=== PATIENT | male | born 1960 | race Caucasian/White ===

== ENCOUNTER → 2016-09-14 | Outpatient (REF) | payer BC ==
[~2016-09-14] MED LIST: RANI1TAB6 PO; SUCR1TA PO; [UNRECOGNIZED DRUG - CODE] TOP
[2016-09-17 00:06] LABS: Lyme Disease IgG/IgM Antibodie <0.91 ISR (0.00-0.90); Lyme Disease IgM Ab Quantitati <0.80 index (0.00-0.79)
== END ==
LOC: M LAB REF 16:43
PROVIDERS: ATTEND Nurse Practitioner Family
DX: R53.83 Other fatigue (principal); M79.1 Myalgia

== ENCOUNTER → 2017-04-19 | Outpatient (CLI) | payer BC | LOC: M WUC 11:53 | DX: M79.671 Pain in right foot (principal) | CPT/HCPCS: 73630 ==

== ENCOUNTER → 2019-02-16 | Outpatient (REF) | payer BC ==
[~2019-02-16] MED LIST changes: +RANI-397 PO; -RANI1TAB6 PO
[2019-02-19 14:12] LABS: Lyme Disease IgG/IgM Antibodie <0.91 ISR (0.00-0.90); Lyme Disease IgM Ab Quantitati <0.80 index (0.00-0.79)
== END ==
LOC: M LAB REF 16:31
PROVIDERS: ATTEND Internal Medicine
DX: R53.83 Other fatigue (principal); R68.82 Decreased libido

== ENCOUNTER → 2019-06-06 | Outpatient (REF) | payer BC ==
[2019-06-06 17:01] LABS: URIC ACID 7.1 MG/DL (3.5-7.2)
== END ==
LOC: M LAB REF 16:24
PROVIDERS: ATTEND Nurse Practitioner Adult Health
DX: M10.9 Gout, unspecified (principal); R11.0 Nausea

== ENCOUNTER → 2020-03-27 | Outpatient (CLI) | payer BC ==
[~2020-03-27] MED LIST changes: +CETACAINE SPRAY 5GM MT ONE; +DIALTAB2 PO; +ECHI80CA PO; +EFFE20TA PO; +FISH1000 PO; +GINK1CAP PO; +GNP250TA9 PO; +IBUP-1022; +OCUV1CHW PO; +PROC10TA4 PO; +THERTAB52 PO
--- NOTE | 2020-03-27 16:05 | RADONC.CN ---
Radiation Oncology Hx/Consult Radiation Oncology Consult Date of Service: Mar 27, 2020 Pt Identifier Neri Matt is a 59 year old male non-smoker with [id number] Stage I HPV+ left tonsil SCC. He is seen for consideration of definitive chemoradiation. Diagnosis/Treatment History Oncologic History Patient noted left neck swelling in October 2019. This was evaluated by his PCP who referred him to ENT and he underwent FNA of the mass on 02/20/20 which revealed HPV+ SCC. He had a PET-CT on 02/29/20 which demonstrated 4 cm cystic necrotic left level II node with no obvious primary tumor. There was also a 1.1 cm mildly avid portocaval node identified (follow up CT abdomen pending). He underwent DL and biopsies on 03/10/20 and the left tonsillectomy specimen returned HPV+ SCC. [id number] Stage I. He had a single episode of post biopsy oropharyngeal bleeding which resolved spontaneously. He was evaluated in the multidisciplinary clinic at [facility] and he opted for chemoradiation as opposed to TORS. Interval History Patient is here with his partner. He recently lost his 29 yo son in a car accident. Still grieving, but hopeful for the fight ahead. He has minimal odynophagia post-biopsy no dysphagia at this time. Again eating solid foods. He did lose about 10 lbs in the post-biopsy setting which was unsettling to him. Has strongly changed his preference toward PEG tube placement which is now scheduled for 04/08/20 (was initially resistant to this). He has seen his dentist this week. Had a crown replaced. No outstanding dental issues per report. He denies left ear pain at this time. No neck pain. Does have post nasal drip. Appetite is good energy is stable. Past Medical History: GERD Gout Hiatal hernia Mitral valve regurgitation Past Surgical History: As above Family History: Father lung cancer Social History: Non-smoker Does not drink Runs an insurance agency Lost son in car accident in February 2020 Allergies / Meds Home Meds Reported Medications Nitroglycerin (Rectiv) 0.4 %/125 Gm Oint, 1 IN TOP Q12H, OIN 01/15/15 Ranitidine HCl (Ranitidine HCl) 150 Mg Tab, 150 MG PO BID, TAB 01/15/15 Sucralfate (Sucralfate) 1 Gm Tab, 1 GM PO ACHS, TAB 01/15/15 Review of Systems Constitutional: Denies: Chills, Fever, Night Sweats Eyes: Denies: Pain, Vision change HEENT: Reports: Post Nasal Drip; Denies: Head Aches, Ear Pain, Dysphagia, Sore Throat, Epistaxis Skin: Denies: Rash, Lesions, Bruising Pulmonary: Denies: Dyspnea, Cough Cardiovascular: Denies: Chest Pain, Palpitations, Edema Gastrointestinal: Denies: Nausea, Vomiting, Abdominal Pain, Diarrhea Genitourinary: Denies: Dysuria, Frequency, Incontinence Hematologic: Denies: Bruising, Petecchia, Enlarged Lymph Nodes Musculoskeletal: Denies: Neck pain, Back pain Neurological: Denies: Weakness, Numbness, Incoordination Psych: Reports: Mood Normal; Denies: Memory Issues, Thoughts of Self Harm Vital Signs Ht 66" Wt 142 lbs BMI 23 T 97.5 P 80 RR 18 BP 147/88 O2 98% Pain 0 Fatigue 2 General Exam: Positive: Alert, Cooperative, No Acute Distress Eye Exam: Positive: PERRLA, EOMI ENT EXAM: Positive: Mucous membr. moist/pink, Pharynx Normal, Tongue Midline, Other ENT (Complete oral cavity exam completed: There are no buccal mucosal lesions palpable, dentition in excellent condition. No missing or broken teeth. There are no palpable lesions in the FOM on bimanual exam. There is visible granulation tissue in the left tonsillar fossa, there are no lesions on palpation of the tonsillar fossae and BOT BL. There is a large left level II mass, it is mobile, centrally firm, fluctuant and non-tender. No overlying skin changes. No contralateral cervical or supraclavicular adenopathy); Negative: Pharyngeal Edema Chest Exam: Positive: Normal air movement; Negative: Rales, Rhonchi, Wheezing Heart Exam: Positive: Rate Normal, Regular Rhythm Abdomen Exam: Positive: Soft; Negative: Tenderness, Mass Extremity Exam: Negative: Edema, Tenderness Skin Exam: Positive: Nl turgor and temperature; Negative: Rash Neuro Exam: Positive: Normal Gait, Normal Speech, Cranial Nerves 3-12 NL Psych Exam: Positive: Mental status NL, Mood NL, Memory Intact Other Physical Findings Laryngoscopy: Patient provided verbal consent to be scoped. Cetacaine was introduced in the right nare for anesthesia. The scope was introduced and passed easily to the nasopharynx no biopsy site changes identified, torus tubarius patent, pharyngeal recess normal. The scoped was passed to the posterior pharyngeal wall there was adherent green mucus covering the wall BL. The scope was obscured and withdrawn and cleared and reintroduced. It was passed to the oropharynx the BL BOT were free of lesions or ulceration. The AE folds were clear. The BL piriform sinuses were easily visualized and patent without lesions. The glottis and epiglottis are freely mobile on phonation. The scope was withdrawn and the patient tolerated the procedure well. Diagnostic and Laboratory Diagnostic Review Radiologic images, relevant labs and pathology reports were personally reviewed and discussed with Mr. Matt. Assessment and Plan Impression Mr. Matt is a 59 year old male non-smoker with [id number] Stage I HPV+ left tonsil SCC. He is seen for consideration of definitive chemoradiation. Stage [id number] HPV+ left tonsil stage I Performance Status ECOG 0 Plan We had an extensive discussion with Mr. Matt regarding the diagnosis at hand and available therapeutic options. He had an excisional biopsy of the left tonsil. No comment on margin status, but had a cauterized posterior margin so consistent with non-oncologic removal. The left neck matteo mass is bulky and typical of HPV+ matteo disease both clinically and radiographically. I agree with the recommendations he received from Dr. Simmons at [facility] (with whom I have discussed the case personally) for chemoradiation 70 Gy in 35 fractions with weekly cisplatin. He asked for referral to medical oncology here due to travel concerns and for convenience, I will facilitate this. We had a lengthy discussion overall of prognosis from this disease, natural history of HPV associated neoplasms, indications for vaccination for HPV and for COVID (I support him receiving COVID vaccine [facility]), and also discussing the tragic recent loss of his son. He has PEG tube placement on 04/08/20, he is strongly in favor of prophylactic placement. I am ok with this and will facilitate nutritional support here locally as well. I confided that I think he would be able to tolerate treatment without a PEG based on his lack of dysphagia leading up to diagnosis and his otherwise healthy BMI. But as he is quite savvy on this topic I defer to his preference to have one placed. We discussed the logistics of receiving radiation therapy in detail including the need for a 1-time planning session. This can occur next week. I reviewed the exhaustive list of side effects associated with treatment which he is already aware of from his prior conversations at [facility]. After discussing the risks, benefits and alternatives to radiation therapy, Mr. Matt was amenable to pursuing radiotherapy. All questions were answered to the patient's satisfaction. We instructed the patient that if there were any questions,concerns or changes in clinical status in the interim to contact us. Recommendations Chemoradiation 70 Gy in 35 fractions Interim replan ~ 30 Gy expected Referral to Dr. Ramon for weekly cisplatin PEG tube scheduled 04/08/20 Dental clearance obtained Total time of (70) minutes was spent preparing for the visit (4), obtaining HPI (13), examining the patient (11), reviewing diagnostic tests (5), discussing management options (20), coordinating care (5), and writing this note (12). VIRGINIA REAL MD Mar 27, 2020 14:57
== END ==
LOC: M ONCR 12:48
PROVIDERS: ATTEND General Practice
DX: C09.9 Malignant neoplasm of tonsil, unspecified (principal)

== ENCOUNTER 2020-04-04 13:57 | Outpatient (RCR) | payer BC ==
[~2020-04-04 13:57] MED LIST changes: -CETACAINE SPRAY 5GM MT ONE; -IBUP-1022; +IBUP-1022 PO
[2020-04-16] MEDS ORDERED: ONDA-83 SL (08:22)
[2020-04-16] MEDS ORDERED: D31000TA2 PO (08:31)
[2020-04-16] MEDS ORDERED: [UNRECOGNIZED DRUG - CODE] PO (08:31)
[2020-04-16] MEDS ORDERED: BILB80CA PO (08:31)
[2020-04-16] MEDS ORDERED: TARTCAP PO (08:31)
[2020-04-16] MEDS ORDERED: CBD OIL PO (08:31)
[2020-04-16] MEDS ORDERED: ASHW300C PO (08:31)
[2020-04-16] MEDS ORDERED: CO Q10CA PO (08:31)
[2020-04-16] MEDS ORDERED: VITA100T59 PO (08:31)
[2020-04-16] MEDS ORDERED: FAMO20TA PO (08:31)
[2020-04-16] MEDS ORDERED: 5-HT1CAP PO (08:31)
[2020-04-16] MEDS ORDERED: XANA0.5T PO (08:31)
[2020-04-18] MEDS ORDERED: ONDA8TAB10 PO (09:03)
[2020-04-18] MEDS ORDERED: ONDA-83 PO (09:08)
[2020-04-21] MEDS ORDERED: LORA1TAB4 PO (12:58)
[2020-04-29] MEDS ORDERED: OXYC1SOL3 PO (12:31)
[2020-05-02] MEDS ORDERED: PROC10TA4 PO (10:31)
[2020-05-05] MEDS ORDERED: LORA1TAB4 PO (12:44)
[2020-05-12] MEDS ORDERED: ALPR0.5T3 PO (12:56)
[2020-05-12] MEDS ORDERED: DECA4TAB PO (12:56)
[2020-05-14] MEDS ORDERED: LIDO5OIN19 TOP (15:07)
[2020-05-21] MEDS ORDERED: SUCR1TA PO (09:21)
[2020-05-22] MEDS ORDERED: BUSP5TA PO (12:56)
== END 2020-04-13 ==
LOC: M ONCR 13:57
PROVIDERS: ATTEND General Practice
DX: C09.0 Malignant neoplasm of tonsillar fossa (principal)

== ENCOUNTER → 2020-05-02 | Outpatient (CLI) | payer BC ==
[~2020-05-02] MED LIST changes: +5-HT1CAP PO; +ALPR0.5T3 PO; +ASHW300C PO; +BILB80CA PO; +CBD OIL PO; +CO Q10CA PO; +D31000TA2 PO; +DECA4TAB PO; +FAMO20TA PO; +LORA1TAB4 PO; +NS 500 ML IV ONE; +ONDA-83 PO; +ONDA-83 SL; +ONDA8TAB10 PO; +OXYC1SOL3 PO; +PALONOSETRON 250 MCG IV IV ONE; +TARTCAP PO; +VITA100T59 PO; +XANA0.5T PO; +[UNRECOGNIZED DRUG - CODE] PO
== END ==
LOC: M ONCR 12:23
PROVIDERS: ATTEND General Practice
DX: C09.0 Malignant neoplasm of tonsillar fossa (principal)

== ENCOUNTER → 2020-05-14 | Outpatient (RCR) | payer BC ==
[~2020-05-14] MED LIST changes: +BUSP5TA PO; +LIDO5OIN19 TOP; -NS 500 ML IV ONE; -PALONOSETRON 250 MCG IV IV ONE
== END ==
LOC: M ONCR 04-14 11:47
PROVIDERS: ATTEND General Practice
DX: C09.0 Malignant neoplasm of tonsillar fossa (principal)

== ENCOUNTER → 2020-05-16 | Outpatient (CLI) | payer BC ==
[~2020-05-16] MED LIST changes: -BUSP5TA PO; +NS 1,000 ML IV SCH; +ONDANSETRON 4MG/2ML VIAL IV ONE; +SODIUM CHLORIDE 0.9% INJ 10 ML SYR IV PRN; +dexameTHASONE 4 MG/ML 1ML VIAL (J1100 PER 1MG) IV ONE
[2020-05-16 12:40] VITALS: BP 127/77
== END ==
LOC: M ONCR 12:12
PROVIDERS: ATTEND General Practice
DX: C09.9 Malignant neoplasm of tonsil, unspecified (principal); C77.9 Secondary and unspecified malignant neoplasm of lymph node, unspecified

== ENCOUNTER 2020-05-30 11:39 | Outpatient (RCR) | payer BC ==
[~2020-05-30 11:39] MED LIST changes: +BUSP5TA PO; -NS 1,000 ML IV SCH; -ONDANSETRON 4MG/2ML VIAL IV ONE; -SODIUM CHLORIDE 0.9% INJ 10 ML SYR IV PRN; -dexameTHASONE 4 MG/ML 1ML VIAL (J1100 PER 1MG) IV ONE
[2020-05-30] MEDS ORDERED: K-TA10TA PO (12:25)
[2020-06-04] MEDS ORDERED: ALPR0.25 PO ×2 (11:31→11:32)
== END 2020-06-13 ==
LOC: M ONCR 11:39
PROVIDERS: ATTEND General Practice
DX: C09.0 Malignant neoplasm of tonsillar fossa (principal)

== ENCOUNTER → 2020-06-04 | Outpatient (CLI) | payer BC ==
[~2020-06-04] MED LIST changes: +ALPR0.25 PO; +K-TA10TA PO; +PEPC10TA6 PO
--- NOTE | 2020-06-04 11:53 | RADENCPD ---
Date/Time of Encounter Date of Encounter: Jun 04, 2020 Time of Encounter: 11:49 Encounter Met with Neri for a 1 week post-treatment check On exam his BL necks are healing nicely, no significant desquamation Grade 1 The left neck node is soft small and mobile. His OPX has confluent grade 3 mucositis on the soft palate and L posterior tongue. Tube site is CDI Weight is up 1.5 lbs (136 from 134.5) He complains of pain in the mouth and thick secretions as well as intermittent constipation. Taking miralax for the latter. Some effect. Minimal nausea today. Would like labs checked for peace of mind. I explained that I am willing to order labs today but if they return normal I will not order additional labs without clinical reason. Plan: Return in 1 week CBC, CMP Refilled xanax 0.25 mg BID PRN anxiety 6 tab Continue salt and soda Continue tylenol/oxycodone for pain Continue miralax for bowel regimen Eat/drink as able VIRGINIA REAL MD Jun 04, 2020 11:53
[2020-06-04 12:35] LABS: BASO % 0.6 % (0.0-1.0); EOS % 0.2 % (0.0-3.0); HEMATOCRIT 31.5 % (42.0-52.0); LYMPH # 0.2 10^3/uL (1.5-5.0); LYMPH % 4.7 % (24.0-44.0); MEAN CORPUSCULAR HEMOGLOBIN 31.4 pg (27.0-33.0); MEAN CORPUSCULAR HGB CONC 34.9 g/dl (32.0-36.5); NEUTROPHILS # 3.7 10^3/uL (1.5-8.5); NEUTROPHILS % 73.3 % (36.0-66.0); PLATELET COUNT, AUTOMATED 134 10^3/uL (150-450); WHITE BLOOD COUNT 5.1 10^3/uL (4.0-10.0)
[2020-06-04 13:07] LABS: ALBUMIN 3.3 GM/DL (3.2-5.2); ALT/SGPT 20 U/L (12-78); BILIRUBIN,TOTAL 0.3 MG/DL (0.2-1.0); BLOOD UREA NITROGEN 17 MG/DL (7-18); CALCIUM LEVEL 9.2 MG/DL (8.8-10.2); CARBON DIOXIDE LEVEL 31 MEQ/L (21-32); CHLORIDE LEVEL 91 MEQ/L (98-107); CREATININE FOR GFR 0.78 MG/DL (0.70-1.30); GLOMERULAR FILTRATION RATE > 60.0 (>49); GLUCOSE, FASTING 133 MG/DL (70-100); SODIUM LEVEL 128 MEQ/L (136-145); TOTAL PROTEIN 7.1 GM/DL (6.4-8.2)
== END ==
LOC: M ONCR 10:30
PROVIDERS: ATTEND General Practice
DX: C09.0 Malignant neoplasm of tonsillar fossa (principal)

== ENCOUNTER → 2020-06-12 | Outpatient (CLI) | payer BC | LOC: M ONCR 11:10 | PROVIDERS: ATTEND General Practice | DX: C09.0 Malignant neoplasm of tonsillar fossa (principal) ==

== ENCOUNTER → 2020-06-19 | Outpatient (CLI) | payer BC ==
--- NOTE | 2020-06-19 15:52 | RADENCPD ---
Date/Time of Encounter Date of Encounter: June 19, 2020 Time of Encounter: 15:50 Encounter Neri came in for a brief follow up today. Notes less insidious secretions and less pain in the throat. Still largely dependent on PEG for hydration and nutrition. Energy level still poor overall. On exam OPX is clear and moist. There is still some minimal soft palate mucositis. The PEG site is CDI, minimal excoriation of the insertion site on the right. There is no residual skin reaction of the neck. There is no discernible remnant of the left sided cervical node on palpation. Assessment: Healing well. Clinical CR in neck Plan: Continue PEG nutrition for now. Increase PO as able. VIRGINIA REAL MD June 19, 2020 15:52
== END ==
LOC: M ONCR 13:44
PROVIDERS: ATTEND General Practice
DX: C09.0 Malignant neoplasm of tonsillar fossa (principal)

== ENCOUNTER → 2020-06-25 | Outpatient (CLI) | payer BC ==
[2020-06-25 10:59] LABS: BASO % 0.7 % (0.0-1.0); EOS % 1.1 % (0.0-3.0); HEMATOCRIT 31.8 % (42.0-52.0); HEMOGLOBIN 10.9 g/dl (13.5-17.5); LYMPH # 0.5 10^3/uL (1.5-5.0); LYMPH % 16.5 % (24.0-44.0); MEAN CORPUSCULAR HEMOGLOBIN 32.9 pg (27.0-33.0); MEAN CORPUSCULAR HGB CONC 34.3 g/dl (32.0-36.5); MEAN CORPUSCULAR VOLUME 96.1 fl (80.0-96.0); MONO # 0.8 10^3/uL (0.0-0.8); MONO % 27.2 % (2.0-8.0); NEUTROPHILS # 1.5 10^3/uL (1.5-8.5); PLATELET COUNT, AUTOMATED 271 10^3/uL (150-450); RED BLOOD COUNT 3.31 10^6/uL (4.30-6.10); WHITE BLOOD COUNT 2.8 10^3/uL (4.0-10.0)
[2020-06-25 11:25] LABS: ALT/SGPT 36 U/L (12-78); BILIRUBIN,TOTAL 0.5 MG/DL (0.2-1.0); BLOOD UREA NITROGEN 15 MG/DL (7-18); CALCIUM LEVEL 9.6 MG/DL (8.8-10.2); CARBON DIOXIDE LEVEL 32 MEQ/L (21-32); CHLORIDE LEVEL 98 MEQ/L (98-107); CREATININE FOR GFR 0.67 MG/DL (0.70-1.30); GLOMERULAR FILTRATION RATE > 60.0 (>49); GLUCOSE, FASTING 107 MG/DL (70-100); POTASSIUM SERUM 4.2 MEQ/L (3.5-5.1); SODIUM LEVEL 133 MEQ/L (136-145)
== END ==
LOC: M ONCR 10:34
PROVIDERS: ATTEND General Practice
DX: C09.0 Malignant neoplasm of tonsillar fossa (principal)

== ENCOUNTER → 2020-07-03 | Outpatient (CLI) | payer BC ==
--- NOTE | 2020-07-03 14:30 | RADENCPD ---
Date/Time of Encounter Date of Encounter: July 03, 2020 Time of Encounter: 14:26 Encounter Neri came in today for a brief follow up. He is taking all PO as of yesterday. Vowed to continue this because he wants his PEG tube removed. He has less and less pain with swallowing. He feels more energetic over the last few days. Overall happy with his improvements. Planning to get COVID vaccine in the coming weeks. His weight is up 1.5 lbs since last week. His oral cavity is clear, there is no mucositis evident in the soft palate BL. The neck skin has completed healed and is normo-pigmented. There is no palpable adenopathy in the neck. G tube site is CDI. Discussed checking CBC/CMP next week and if he is able to maintain all PO intake, I would order his PEG out and discontinue further labs. We could then follow up as needed until his PET-CT. VIRGINIA REAL MD July 03, 2020 14:30
== END ==
LOC: M ONCR 12:58
PROVIDERS: ATTEND General Practice
DX: C09.0 Malignant neoplasm of tonsillar fossa (principal)

== ENCOUNTER → 2020-07-09 | Outpatient (CLI) | payer BC ==
[~2020-07-09] MED LIST changes: +TYLE650T38 PO
[2020-07-09 12:46] LABS: BASO # 0.1 10^3/uL (0.0-0.2); BASO % 1.2 % (0.0-1.0); EOS % 0.6 % (0.0-3.0); HEMATOCRIT 33.8 % (42.0-52.0); HEMOGLOBIN 11.6 g/dl (13.5-17.5); LYMPH # 0.7 10^3/uL (1.5-5.0); LYMPH % 10.5 % (24.0-44.0); MEAN CORPUSCULAR HEMOGLOBIN 33.3 pg (27.0-33.0); MEAN CORPUSCULAR HGB CONC 34.3 g/dl (32.0-36.5); MEAN CORPUSCULAR VOLUME 97.1 fl (80.0-96.0); MONO # 1.4 10^3/uL (0.0-0.8); MONO % 20.1 % (2.0-8.0); NEUTROPHILS # 4.5 10^3/uL (1.5-8.5); NEUTROPHILS % 66.1 % (36.0-66.0); PLATELET COUNT, AUTOMATED 239 10^3/uL (150-450); RED BLOOD COUNT 3.48 10^6/uL (4.30-6.10); WHITE BLOOD COUNT 6.8 10^3/uL (4.0-10.0)
[2020-07-09 13:09] LABS: ALBUMIN 3.9 GM/DL (3.2-5.2); ALT/SGPT 53 U/L (12-78); BILIRUBIN,TOTAL 0.6 MG/DL (0.2-1.0); BLOOD UREA NITROGEN 18 MG/DL (7-18); CALCIUM LEVEL 9.6 MG/DL (8.8-10.2); CARBON DIOXIDE LEVEL 31 MEQ/L (21-32); CHLORIDE LEVEL 99 MEQ/L (98-107); CREATININE FOR GFR 0.72 MG/DL (0.70-1.30); GLOMERULAR FILTRATION RATE > 60.0 (>49); GLUCOSE, FASTING 93 MG/DL (70-100); SODIUM LEVEL 135 MEQ/L (136-145); TOTAL PROTEIN 6.8 GM/DL (6.4-8.2)
== END ==
LOC: M ONCR 11:24
PROVIDERS: ATTEND General Practice
DX: C09.9 Malignant neoplasm of tonsil, unspecified (principal)

== ENCOUNTER → 2020-07-10 | Outpatient (CLI) | payer BC ==
--- NOTE | 2020-07-10 14:34 | RADENCPD ---
Date/Time of Encounter Date of Encounter: July 10, 2020 Time of Encounter: 14:08 Encounter Neri is here, reports taking all PO. Mild pain in the neck taking tylenol. Saw ENT (Dr. Russell) @ [facility] was scoped all was well internally. Weight is stable. CMP/CBC very good, NL sodium. Normalizing Hgb. Discussed D/c PEG tube. He would like this done here, not at [facility] where placed while he was an inpatient. Also discussed referral to OT for lymphedema therapy. He is agreeable to this. I will see him back in 2 weeks. We will discontinue recurring labs. VIRGINIA REAL MD July 10, 2020 14:34
== END ==
LOC: M ONCR 13:02
PROVIDERS: ATTEND General Practice
DX: C09.0 Malignant neoplasm of tonsillar fossa (principal)

== ENCOUNTER → 2020-07-17 | Outpatient (CLI) | payer BC ==
--- NOTE | 2020-07-17 12:46 | RADENCPD ---
Date/Time of Encounter Date of Encounter: Jul 17, 2020 Time of Encounter: 12:38 Encounter Neri came in today for a brief follow up. He reports that he has had some sweet tastes return, most food however tastes bland. Despite this he has not used his PEG tube in 3 weeks and weight again is up another 1 lb. He is scheduled to see Dr. Ramirez about having the PEG removed next week. He is due for labs from medical oncology next week as well. He has some discomfort in his neck and shoulders, as well as his pectoral muscles BL. He has been doing some light exer cise. Suspect this may be related to deconditioning from treatment, or stress, or recent COVID vaccination last week. We agreed to monitor this for now. We also talked about reconciling the trauma of treatment and also the preceding tragic loss of his son for which he now has been planning memorial services//etc. He is going to meet with a bereavement counselor in the coming weeks as well. I think this will be very positive for Neri. On exam today the oral cavity is pink and well-hydrated. The mucosa has healed completely with no visible mucositis. The left neck is still mildly tender over the site of the node, which has com pletely regressed and is not palpable today. ROM is intact Skin is healed completely mildly hyperpigmented We agreed to follow up next as previously scheduled VIRGINIA REAL MD Jul 17, 2020 12:46
== END ==
LOC: M ONCR 11:03
PROVIDERS: ATTEND General Practice
DX: C09.0 Malignant neoplasm of tonsillar fossa (principal)

== ENCOUNTER → 2020-07-22 | Outpatient (POV) | payer BC ==
[~2020-07-22] VITALS: Ht 167.6 cm; Wt 63.6 kg
[2020-07-22 16:14] VITALS: BP 136/89
--- NOTE | 2020-07-23 13:12 | IRPN ---
[facility] IR Progress Note IR Progress Note DATE: Jul 22, 2020 FOLLOW-UP: 60-year-old male with left tonsillar squamous cell carcinoma, now status post chemoradiation. Patient had a G-tube placed in [facility] in March. He has not used the G-tube in many weeks. He reports he is now eating and drinking by mouth and maintaining if not increasing his weight. He would like the G-tube removed. Patient is referred by radiation oncology for G-tube removal. Patient denies any issues at the G-tube site post insertion, such as excessive leakage or skin breakdown. ON EXAMINATION: G-tube site appears clean, healthy skin tissue around the G- tube. The balloon was deflated and the G-tube removed in its entirety. A sterile dressing was applied to the site. IMPRESSION: Successful removal of G-tube. Patient is advised the site will take a couple months to heal up and may leak in the meantime. It is to heal by secondary intention. Patient is to keep the site dry and dressed until it is completely healed. Thank you for this referral. Cc Dr. Venegas Allergies Coded Allergies: Penicillins (Verified Allergy, Intermediate, RASH, 04/01/20) minoxidil (Verified Allergy, Intermediate, RASH, 04/01/20) VS,Fishbone, I+O VS, Fishbone, I+O Vital Signs Date Time Temp Pulse Resp B/P (MAP) Pulse Ox O2 Delivery O2 Flow Rate FiO2 07/22/20 16:14 98.2 82 20 136/89 (105) 98 Room Air PRECIOUS BOATENG MD Jul 23, 2020 13:12
== END ==
LOC: M IRPOV 15:29
PROVIDERS: ATTEND Radiology Diagnostic Radiology
DX: Z43.1 Encounter for attention to gastrostomy (principal); C09.9 Malignant neoplasm of tonsil, unspecified; Z92.3 Personal history of irradiation

== ENCOUNTER → 2020-07-24 | Outpatient (CLI) | payer BC ==
--- NOTE | 2020-07-24 14:02 | RADENCPD ---
Date/Time of Encounter Date of Encounter: Jul 24, 2020 Time of Encounter: 14:00 Encounter Neri came for a brief follow up today. Doing well eating, still some mild soreness in the throat and left neck. On exam OPX clear, normal mucosa Necks negative for enlarged nodes PEG tube site healing well No pallor Labs, CBC and CMP unremarkable. We agreed to follow up again in 2 weeks time PET-CT has been scheduled for 08/25/20 I will scope him at that followup appointment VIRGINIA REAL MD Jul 24, 2020 14:02
== END ==
LOC: M ONCR 13:00
PROVIDERS: ATTEND General Practice
DX: C09.0 Malignant neoplasm of tonsillar fossa (principal)

== ENCOUNTER → 2020-08-06 | Outpatient (CLI) | payer BC ==
[2020-08-06 11:47] LABS: BASO % 0.7 % (0.0-1.0); EOS # 0.3 10^3/uL (0.0-0.5); EOS % 5.4 % (0.0-3.0); HEMATOCRIT 36.7 % (42.0-52.0); HEMOGLOBIN 12.4 g/dl (13.5-17.5); LYMPH # 0.9 10^3/uL (1.5-5.0); LYMPH % 14.2 % (24.0-44.0); MEAN CORPUSCULAR HEMOGLOBIN 32.3 pg (27.0-33.0); MEAN CORPUSCULAR HGB CONC 33.8 g/dl (32.0-36.5); MEAN CORPUSCULAR VOLUME 95.6 fl (80.0-96.0); MONO % 15.6 % (2.0-8.0); NEUTROPHILS # 3.9 10^3/uL (1.5-8.5); NEUTROPHILS % 63.6 % (36.0-66.0); PLATELET COUNT, AUTOMATED 153 10^3/uL (150-450); RED BLOOD COUNT 3.84 10^6/uL (4.30-6.10); WHITE BLOOD COUNT 6.1 10^3/uL (4.0-10.0)
[2020-08-06 12:08] LABS: ALBUMIN 4.2 GM/DL (3.2-5.2); ALT/SGPT 34 U/L (12-78); BILIRUBIN,TOTAL 1.2 MG/DL (0.2-1.0); BLOOD UREA NITROGEN 23 MG/DL (7-18); CALCIUM LEVEL 9.1 MG/DL (8.8-10.2); CARBON DIOXIDE LEVEL 29 MEQ/L (21-32); CHLORIDE LEVEL 100 MEQ/L (98-107); GLOMERULAR FILTRATION RATE > 60.0 (>49); GLUCOSE, FASTING 97 MG/DL (70-100); POTASSIUM SERUM 4.2 MEQ/L (3.5-5.1); SODIUM LEVEL 133 MEQ/L (136-145); TOTAL PROTEIN 7.3 GM/DL (6.4-8.2)
--- NOTE | 2020-08-08 09:58 | RADENCPD ---
Date/Time of Encounter Date of Encounter: Aug 07, 2020 Time of Encounter: 13:00 Encounter Neri came in for a brief follow up today. He is eating well weight is stable. Left neck is HAVEN. Labs work is WNL, Hgb recovering steadily. He will return for PET-CT and scope exam on 08/25/20 VIRGINIA REAL MD Aug 08, 2020 09:58
== END ==
LOC: M ONCR 11:00
PROVIDERS: ATTEND General Practice
DX: C09.0 Malignant neoplasm of tonsillar fossa (principal)

== ENCOUNTER → 2020-08-07 | Outpatient (CLI) | payer BC | LOC: M ONCR 08-06 11:00 | PROVIDERS: ATTEND General Practice | DX: C09.0 Malignant neoplasm of tonsillar fossa (principal) ==

== ENCOUNTER 2020-08-12 14:15 | Outpatient (RCR) | payer BC | END 2020-08-13 | LOC: M PT 14:15 | PROVIDERS: ATTEND General Practice | DX: C09.0 Malignant neoplasm of tonsillar fossa (principal) ==

== ENCOUNTER → 2020-08-25 | Outpatient (CLI) | payer BC ==
--- NOTE | 2020-08-26 08:22 | REP ---
INDICATION: RESTAGING MALIGNANT NEOPLASM OF TONSILAR FOSSA. Post radiation therapy. COMPARISON: Comparison is made with images from a prior outside PET-CT study dated 29 February 2020. Comparison soft tissue neck CT study January 24, 2020.. TECHNIQUE: Sixty-five minutes following the intravenous injection of a 9.18 mCi dose of F-18 FDG, three-dimensional PET scintigraphy is acquired from the skull base to the proximal thighs. Triplanar noncontrast CT scanning is acquired through the same anatomic range for attenuation correction, and image registration with scan parameters optimized to minimize radiation exposure to the patient. PET scintigraphy and CT datasets were fused and displayed on a workstation with multiplanar and projection display capability. FINDINGS: Head and neck soft tissues are unremarkable today. There is no hypermetabolic matteo uptake. Previously noted low-density adenopathy on the left is no longer apparent. There is no abnormal hypermetabolic hilar or mediastinal matteo uptake. No abnormal hypermetabolic uptake is seen within the lung parenchyma. There is a curvilinear opacity suggesting of fibrosis or post inflammatory change in the right upper lobe region laterally. Maximum standard uptake value here is 1.33. This is not hypermetabolic. No pulmonary nodule or mass lesion is observed. In the abdomen and pelvis there is normal hepatic, splenic, gastrointestinal, and genitourinary FDG accumulation which is physiologic. No abnormal hypermetabolic uptake is seen in the abdomen or pelvis. No abnormal skeletal uptake is appreciated. IMPRESSION: Negative PET scintigraphy. Previously noted left neck adenopathy no longer apparent. <Electronically signed by Riley Nichols > 08/26/20 0819
== END ==
LOC: M PLARAD 11:01
PROVIDERS: ATTEND General Practice
DX: C09.0 Malignant neoplasm of tonsillar fossa (principal)

== ENCOUNTER → 2020-08-28 | Outpatient (CLI) | payer BC ==
[2020-08-20 13:56] LABS: BASO % 0.5 % (0.0-1.0); EOS # 0.2 10^3/uL (0.0-0.5); EOS % 3.8 % (0.0-3.0); HEMATOCRIT 37.4 % (42.0-52.0); HEMOGLOBIN 12.7 g/dl (13.5-17.5); MEAN CORPUSCULAR HEMOGLOBIN 32.3 pg (27.0-33.0); MEAN CORPUSCULAR VOLUME 95.2 fl (80.0-96.0); MONO # 0.9 10^3/uL (0.0-0.8); MONO % 14.8 % (2.0-8.0); NEUTROPHILS # 3.9 10^3/uL (1.5-8.5); NEUTROPHILS % 64.6 % (36.0-66.0); PLATELET COUNT, AUTOMATED 168 10^3/uL (150-450); RED BLOOD COUNT 3.93 10^6/uL (4.30-6.10); WHITE BLOOD COUNT 6.1 10^3/uL (4.0-10.0)
[2020-08-20 14:27] LABS: ALBUMIN 4.2 GM/DL (3.2-5.2); ALT/SGPT 42 U/L (12-78); BLOOD UREA NITROGEN 24 MG/DL (7-18); CALCIUM LEVEL 9.5 MG/DL (8.8-10.2); CARBON DIOXIDE LEVEL 31 MEQ/L (21-32); CHLORIDE LEVEL 98 MEQ/L (98-107); CREATININE FOR GFR 0.97 MG/DL (0.70-1.30); FERRITIN 325 NG/ML (26-388); GLOMERULAR FILTRATION RATE > 60.0 (>49); GLUCOSE, FASTING 96 MG/DL (70-100); IRON (FE) 85 UG/DL (65-175); PERCENT SATURATION 25.4 % (19.7-50.0); POTASSIUM SERUM 4.4 MEQ/L (3.5-5.1); SODIUM LEVEL 136 MEQ/L (136-145); TOTAL IRON BINDING CAPACITY 335 UG/DL (250-450); TOTAL PROTEIN 7.5 GM/DL (6.4-8.2)
[~2020-08-28] MED LIST changes: +ONDA-84 PO; -ONDA8TAB10 PO; +PRED20TA PO; -PROC10TA4 PO; +PROC10TA5 PO; +SERT50TA29 PO; +TRIA1CR80 TOP
== END ==
LOC: M ONCR 12:59
PROVIDERS: ATTEND General Practice
DX: C09.0 Malignant neoplasm of tonsillar fossa (principal); Z88.0 Allergy status to penicillin; Z88.8 Allergy status to other drugs, medicaments and biological substances; Z92.3 Personal history of irradiation
CPT/HCPCS: 31575; G0463

== ENCOUNTER 2020-09-11 15:00 | Outpatient (RCR) | payer BC ==
[~2020-09-11 15:00] MED LIST changes: -ONDA-84 PO; +ONDA8TAB10 PO; -PRED20TA PO; +PROC10TA4 PO; -PROC10TA5 PO; -SERT50TA29 PO; -TRIA1CR80 TOP
== END 2020-09-13 ==
LOC: M PT 15:00
PROVIDERS: ATTEND General Practice
DX: C09.0 Malignant neoplasm of tonsillar fossa (principal)

== ENCOUNTER → 2020-09-23 | Outpatient (CLI) | payer BC ==
[~2020-09-23] MED LIST changes: +PRED20TA PO; +TRIA1CR80 TOP
--- NOTE | 2020-09-23 15:05 | RADENCPD ---
Date/Time of Encounter Date of Encounter: Sep 23, 2020 Time of Encounter: 15:02 Encounter Neri came in today for a brief follow up for concern of a rash on his left neck. Came on over the last week. It is red and dry and itches. He is also on treatment for gout, affecting the left great toe. On exam the left toe is red and swollen. The OPX is clear no palpable adenopathy in the neck, there is minimal lymphedema under the chin. There is a red eczematoid rash over the left cervical neck. I believe he has some eczema, I will give him some triamcinolone cream to use. He should also keep the neck moisturized. He has scheduled follow up in November, as always, can see me sooner if needed. VIRGINIA REAL MD Sep 23, 2020 15:05
== END ==
LOC: M ONCR 13:58
PROVIDERS: ATTEND General Practice
DX: C09.0 Malignant neoplasm of tonsillar fossa (principal); R21 Rash and other nonspecific skin eruption
CPT/HCPCS: 31575; G0463

== ENCOUNTER 2020-10-10 12:00 | Outpatient (RCR) | payer BC | END 2020-10-14 | LOC: M PT 12:00 | PROVIDERS: ATTEND General Practice | DX: C09.0 Malignant neoplasm of tonsillar fossa (principal) ==

== ENCOUNTER → 2020-10-29 | Outpatient (CLI) | payer BC ==
--- NOTE | 2020-10-29 15:29 | RADENCPD ---
Date/Time of Encounter Date of Encounter: Oct 29, 2020 Time of Encounter: 15:26 Encounter Neri came in for a brief follow up today for a concern of a new lump in the right neck. Noted for the last week. Not painful. He denies any infectious exposures. Did have a strenuous golf tournament last weekend. On exam there is a ~1cm mobile right level II node. It is non-tender and soft. The OPX is clear, no evidence of disease recurrence in the tonsillar fossae. No disease in the left neck. Assessment: Likely reactive right LN. Given history will obtain US and direct further management from there. Plan: US right neck will f/u by phone with result. VIRGINIA REAL MD Oct 29, 2020 15:29
== END ==
LOC: M ONCR 13:13
PROVIDERS: ATTEND General Practice
DX: C09.0 Malignant neoplasm of tonsillar fossa (principal)
CPT/HCPCS: 31575; G0463

== ENCOUNTER → 2020-10-31 | Outpatient (CLI) | payer BC ==
--- NOTE | 2020-11-01 17:03 | REP ---
INDICATION: RT PALPABLE NECK NODE COMPARISON: None. TECHNIQUE: Grayscale and color Doppler evaluation using linear high-frequency transducer. FINDINGS: Directed ultrasound examination along the right-side of the neck at the site of palpable mass adjacent to the submandibular gland demonstrates a 2.0 x 0.4 x 0.6 cm normal appearing lymph node. No further fluid collection, mass or abnormality identified. IMPRESSION: Findings most compatible with normal benign-appearing lymph node. <Electronically signed by Shay Nieves > 11/01/20 1345
== END ==
LOC: M RAD 15:10
PROVIDERS: ATTEND General Practice
DX: C09.0 Malignant neoplasm of tonsillar fossa (principal)

== ENCOUNTER 2020-11-12 12:00 | Outpatient (RCR) | payer BC | END 2020-11-13 | LOC: M PT 12:00 | PROVIDERS: ATTEND General Practice | DX: C09.9 Malignant neoplasm of tonsil, unspecified (principal); I89.0 Lymphedema, not elsewhere classified ==

== ENCOUNTER → 2020-11-26 | Outpatient (CLI) | payer BC | LOC: M ONCR 14:12 | PROVIDERS: ATTEND General Practice | DX: C09.9 Malignant neoplasm of tonsil, unspecified (principal); Z63.0 Problems in relationship with spouse or partner; Z88.0 Allergy status to penicillin; Z88.8 Allergy status to other drugs, medicaments and biological substances; Z92.21 Personal history of antineoplastic chemotherapy; Z92.3 Personal history of irradiation | CPT/HCPCS: 31575; G0463 ==

== ENCOUNTER → 2020-11-26 | Outpatient (CLI) | payer BC ==
[2020-11-26 14:59] LABS: FREE T4 0.9 NG/DL (0.76-1.46); THYROID STIMULATING HORMONE 2.54 uIU/ML (0.358-3.740)
--- NOTE | 2020-11-26 16:40 | RADONC ---
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 He completed chemoradiation 70 Gy in 35 fractions with weekly cisplatin on 05/30/20. He is seen today for follow up and survivorship care. Diagnosis/Treatment History Oncologic History Patient noted left neck swelling in October 2019. This was evaluated by his PCP who referred him to ENT and he underwent FNA of the mass on 02/20/20 which revealed HPV+ SCC. He had a PET-CT on 02/29/20 which demonstrated 4 cm cystic necrotic left level II node with no obvious primary tumor. There was also a 1.1 cm mildly avid portocaval node identified (follow up CT abdomen negative). He underwent DL and biopsies on 03/10/20 and the left tonsillectomy specimen returned HPV+ SCC. [id number] Stage I. He had a single episode of post biopsy oropharyngeal bleeding which resolved spontaneously. He was evaluated in the multidisciplinary clinic at [facility] and he opted for chemoradiation as opposed to TORS. He received chemoradiation 70 Gy in 35 fractions with weekly cisplatin 04/14/20- 05/30/20. He had an interim replan which treated the final 12 fractions. 08/25/20 PET-CT: Negative PET scintigraphy. Previously noted left neck adenopathy no longer apparent. Survivorship: Test Due Next Last result Notes TSH, T4 6m post-tx, then q1y 11/202111/26/20 TSH2.5 T4 0.9 Carotid US q10 y post-tx 2030 Smoking cessation Assess annually if applicable N/A CXR or screening CT q1y once CR confirmed N/A CBC,CMP, Lipids q1y 2021 or per PCP Interval History Neri is slowly recovering and healing from his cancer and loss of his son. He is attending counseling which has been helpful. He is also slowly recovering taste. The right sided small LN which prompted US evaluation he says has decreased in size. He has no pain in the throat but feels a small "catch" on the left side sometimes when he swallows. He reports he has been having some balance issues chronically, which have bothered him more lately. Current Therapy Surveillance Stage HPV+ left tonsil SCC [id number] stage I Social History: Never smoker Does not drink Allergies / Meds Allergies: Coded Allergies: Penicillins (Verified Allergy, Intermediate, RASH, 04/01/20) minoxidil (Verified Allergy, Intermediate, RASH, 04/01/20) Home Meds Active Scripts Alprazolam (Alprazolam) 0.25 Mg Tablet, 1 TAB PO BIDP PRN for anxiety MDD 2 Tablet(s) for 30 Days, #60 TAB Prov:VIRGINIA REAL MD 11/03/20 Triamcinolone Acet (Triamcinolone Acetonide 0.1% Crm) 80 Gm Cream..g., 1 APLCT TOP BID for 10 Days, #80 GRAM Apply a small amount to affected skin left neck twice daily until rash resolves. Prov:VIRGINIA REAL MD 09/23/20 Reported Medications Acetaminophen (Tylenol 8 Hour) 650 Mg Tablet.er, 650 MG PO 07/10/20 Famotidine (Pepcid AC) 10 Mg Tablet, 10 MG PO DAILY for 30 Days, #30 TAB 06/19/20 Review of Systems Review of Systems Constitutional: Denies: Fever, Fatigue, Weight Loss Eyes: Denies: Pain HEENT: Denies: Head Aches, Ear Pain (Some ear fullness L>R), Sore Throat Skin: Denies: Rash Pulmonary: Denies: Dyspnea Hematologic: Denies: Enlarged Lymph Nodes Endocrine: Denies: Cold Intolerance Musculoskeletal: Denies: Neck pain, Back pain Neurological: Denies: Weakness, Numbness Psych: Reports: Mood Normal Physical Examination Vital Signs Ht 141 lbs T 98 P 76 RR 18 BP 140/81 O2 100% Pain 0 Fatigue 1 General Exam: Alert, Cooperative, No Acute Distress ENT EXAM: Other ENT (Complete oral cavity exam performed. The dentition is in excellent condition. There are no visible or palpable mucosal lesions in the buccal, gingival, FOM, oral tongue, tongue base, or tonsillar fossae on bimanual exam. There is pale mucosa present in the left tonsillar fossa, consistent with post RT change. ); Negative: Tympanic Membranes Normal (Right TM normal appearing. Left TM normal appearing.) Neck Exam: Negative: Lymphadenopathy (Mild submental edema. Minimal fibrosis, laryngeal elevation and crepitus intac. Thyroid flat and smooth. Resolving epila tion. No significant palpable adenopathy BL) Abdomen Exam: Soft Extremity Exam: Negative: Edema Skin Exam: Nl turgor and temperature Neuro Exam: Normal Gait, Normal Speech, Cranial Nerves 3-12 NL Other Physical Findings Neri provided verbal consent to be scoped. Cetacaine was introduced in the right and left nares. The scope was easily passed through the right nasal passage first, which appeared normal. The right nasopharyngeal recess was free of lesions. The right torus tubarius appeared normal. The posterior soft palate and posterior pharyngeal wall appeared normal without lesions. The BL tongue bases appeared normal without mucosal lesions. The BL hypopharynx AE folds and epiglottis had normal appearing mucosa. The epiglottis was upright and sharp- rimmed. The larynx was freely mobile and without lesions, the arytenoids were symmetrica and freely mobile. The scope was withdrawn and replaced in the left nare, the left nasopharynx appeared free of lesions, the left torus tubarius was mildly edematous compared to right, the right posterior soft palate had some telangiectasias consistent with RT changes. The scope was withdrawn. Neri tolerated the procedure well. Diagnostic and Laboratory Diagnostic Review Radiologic images, relevant labs and pathology reports were personally reviewed and discussed with Mr. Matt. Laboratory Tests 11/26/20 14:17: Thyroid Stimulating Hormone (TSH) 2.540, Free Thyroxine 0.90 Assessment and Plan Impression Assessment Mr. Matt is a 60 year old male with a history of on-smoker with a history of [id number] Stage I HPV+ left tonsil SCC. He completed chemoradiation 70 Gy in 35 fractions with weekly cisplatin on 05/30/20. He is seen today for follow up and survivorship care. He is doing well with ongoing recovery of his treatment related toxicities. His exam today has no evidence of recurrent disease. He has some imbalance which is bothersome, he has been evaluated by ENT and audiology for this without much luck. I shared the name of Dr. Heriberto Villanueva @ [facility] with him who runs a neurootology and balance lab. If Shay would like I would be happy to arrange a referral there. He had TFTs drawn today which were WNL. Will check these again in 1 year. Otherwise will see him for another exam in 3 months time. Performance Status ECOG 0 Plan 3 month follow up Mr. Matt was encouraged to call with questions or concerns in the interim period. Billing Statement Total time of [35] minutes was spent preparing for the visit [2], obtaining HPI [7], examining the patient [7], reviewing diagnostic tests [2], discussing management options [7], coordinating care [2], and writing this note [8]. VIRGINIA REAL MD Nov 26, 2020 16:40
== END ==
LOC: M ONCR 13:03
PROVIDERS: ATTEND General Practice
DX: C09.0 Malignant neoplasm of tonsillar fossa (principal); R26.89 Other abnormalities of gait and mobility; Z88.0 Allergy status to penicillin; Z88.8 Allergy status to other drugs, medicaments and biological substances; Z92.21 Personal history of antineoplastic chemotherapy; Z92.3 Personal history of irradiation
CPT/HCPCS: 31575; 36415; 84439; 84443; G0463

== ENCOUNTER → 2020-12-15 | Outpatient (CLI) | payer BC ==
--- NOTE | 2020-12-16 16:05 | SLEEPHOME ---
DATE: 12/15/2020 ORDERED BY: Raquel Tran Diagnostic home sleep testing was performed due to concern for the obstructive sleep apnea syndrome in this patient with complex medical illness. For testing, a NOX T3 respiratory monitoring device was used. Continuous record was made of pulse, oxygen saturation, air flow, chest and abdominal strain, and body position. There was 9 hours and 59 minutes of data reviewed. There were only 7 hours and 25 minutes marked as time in bed. During the interval marked time in bed, there were 21 respiratory events identified of 10 seconds in duration or greater. The respiratory event index was 2.8. The events that were seen were of various varieties. Baseline pulse rate 60. Pulse rate ranged 48-110. Baseline saturation 95%. There was one desaturation to 80%, which on close inspection appeared to be artifactual. IMPRESSION: Borderline normal diagnostic home sleep test with some respiratory patterning and no obvious oxygen desaturations. RECOMMENDATION: While the frequency of respiratory events generally associated with obstructive sleep apnea syndrome was not identified on this study, should the patient continue to have sleep difficulties, formal in-laboratory nocturnal polysomnography may be more sensitive.
== END ==
LOC: M SLEEP HO 13:20
PROVIDERS: ATTEND Nurse Practitioner Family
DX: R06.83 Snoring (principal); G47.8 Other sleep disorders

== ENCOUNTER → 2021-02-02 | Outpatient (CLI) | payer BC ==
--- NOTE | 2021-02-04 15:25 | SLEEPCENT ---
DATE: 02/02/2021 ORDERED BY: TODD Sahu Nocturnal polysomnography was performed for evaluation of sleep physiology in this patient with a history of snoring and nonrestorative sleep. Seven hours and 44 minutes of data were reviewed. There were 354 minutes of sleep identified. Sleep latency was prolonged at 58.5 minutes. REM latency was also mildly prolonged at 157.5 minutes. Sleep architecture initially showed poor progression. Improvement was seen later in the study and there were four REM cycles noted. Overall sleep efficiency was 77.1%. The electrocardiogram showed an underlying sinus rhythm with an average heart rate of 60 beats per minute. Rate ranged 40-75. EEG showed essentially normal waveforms for wake and sleep. There were 27 respiratory events identified of 10 seconds in duration or greater for an apnea-hypopnea index at the upper limit of normal at 4.6. The events seen were not associated with stage or position. Snoring was noted over the entire study. Arousals from respiratory events when arousals from snoring were included occurred only 3.2 times per hour, and oxygen saturations were maintained better than 90% with the exception of some artifactual changes late in the study. There was some limb activity noted in the EMG leads. Limb movement arousal index on this occasion was only 4.1. IMPRESSION: Normal nocturnal polysomnography with snoring. RECOMMENDATION: The respiratory patterning and borderline occurrence of respiratory events suggests that interventions to optimize upper airway tone and improve oronasal patency may be helpful.
== END ==
LOC: M SLEEP 20:00
PROVIDERS: ATTEND Nurse Practitioner Family
DX: R06.83 Snoring (principal); R40.0 Somnolence

== ENCOUNTER 2021-02-11 12:00 | Outpatient (RCR) | payer BC | END 2021-02-13 | LOC: M PT 12:00 | PROVIDERS: ATTEND General Practice | DX: C09.9 Malignant neoplasm of tonsil, unspecified (principal); I89.0 Lymphedema, not elsewhere classified ==

== ENCOUNTER → 2021-02-25 | Outpatient (CLI) | payer BC ==
[~2021-02-25] MED LIST changes: +CETACAINE SPRAY 5GM MT ONE; +ONDA-84 PO; -ONDA8TAB10 PO; -PROC10TA4 PO; +PROC10TA5 PO; +SERT50TA29 PO
== END ==
LOC: M ONCR 14:02
PROVIDERS: ATTEND General Practice
DX: C09.0 Malignant neoplasm of tonsillar fossa (principal); Z92.21 Personal history of antineoplastic chemotherapy; Z92.3 Personal history of irradiation; Z88.0 Allergy status to penicillin; Z88.1 Allergy status to other antibiotic agents; Z79.899 Other long term (current) drug therapy
CPT/HCPCS: 31575; G0463

== ENCOUNTER 2021-03-10 12:45 | Outpatient (RCR) | payer BC ==
[~2021-03-10 12:45] MED LIST changes: -CETACAINE SPRAY 5GM MT ONE
== END 2021-03-16 ==
LOC: M PT 12:45
PROVIDERS: ATTEND General Practice
DX: J38.4 Edema of larynx (principal); Z92.3 Personal history of irradiation

== ENCOUNTER → 2021-04-13 | Outpatient (RCR) | payer BC ==
[~2021-04-13] MED LIST changes: -D31000TA2 PO; +VITA100093 PO
== END ==
LOC: M PT 03-17 12:44
PROVIDERS: ATTEND General Practice
DX: J38.4 Edema of larynx (principal); Z92.3 Personal history of irradiation

== ENCOUNTER → 2021-05-14 | Outpatient (RCR) | payer BC | LOC: M PT 04-16 12:45 | PROVIDERS: ATTEND General Practice | DX: J38.4 Edema of larynx (principal); Z92.3 Personal history of irradiation ==

== ENCOUNTER 2021-06-05 13:27 | Outpatient (RCR) | payer BC | END 2021-06-13 | LOC: M PT 13:27 | PROVIDERS: ATTEND General Practice | DX: J38.4 Edema of larynx (principal); Z92.3 Personal history of irradiation ==

== ENCOUNTER → 2021-06-10 | Outpatient (CLI) | payer BC | LOC: M ONCR 14:21 | PROVIDERS: ATTEND General Practice | DX: C09.0 Malignant neoplasm of tonsillar fossa (principal); Z88.0 Allergy status to penicillin; Z88.8 Allergy status to other drugs, medicaments and biological substances; Z92.21 Personal history of antineoplastic chemotherapy; Z92.3 Personal history of irradiation | CPT/HCPCS: 31575; G0463 ==

== ENCOUNTER 2021-07-02 12:45 | Outpatient (RCR) | payer BC | END 2021-07-14 | LOC: M PT 12:45 | PROVIDERS: ATTEND General Practice | DX: J38.4 Edema of larynx (principal); Z92.3 Personal history of irradiation ==

== ENCOUNTER → 2021-07-09 | Outpatient (CLI) | payer BC | LOC: M ONCR 14:48 | PROVIDERS: ATTEND General Practice | DX: R13.10 Dysphagia, unspecified (principal); Z85.818 Personal history of malignant neoplasm of other sites of lip, oral cavity, and pharynx; Z92.3 Personal history of irradiation ==

== ENCOUNTER → 2021-09-09 | Outpatient (REF) | payer BC ==
[~2021-09-09] MED LIST changes: +CYCL5TAB PO
[2021-09-09 13:47] LABS: BLOOD UREA NITROGEN 16 MG/DL (7-18); CREATININE FOR GFR 1.02 MG/DL (0.70-1.30); GLUCOSE, FASTING 85 MG/DL (70-100)
[2021-09-09 13:48] LABS: ALT/SGPT 31 U/L (12-78); BILIRUBIN,TOTAL 1.4 MG/DL (0.2-1.0); CALCIUM LEVEL 9.3 MG/DL (8.8-10.2); CARBON DIOXIDE LEVEL 30 MEQ/L (21-32); CHLORIDE LEVEL 100 MEQ/L (98-107); FREE T4 0.93 NG/DL (0.76-1.46); GLOMERULAR FILTRATION RATE > 60.0 (>49); POTASSIUM SERUM 4.6 MEQ/L (3.5-5.1); SODIUM LEVEL 133 MEQ/L (136-145)
== END ==
LOC: M LAB REF 11:52
PROVIDERS: ATTEND General Practice
DX: C09.9 Malignant neoplasm of tonsil, unspecified (principal); Z92.21 Personal history of antineoplastic chemotherapy

== ENCOUNTER → 2021-09-10 | Outpatient (CLI) | payer BC | LOC: M ONCR 14:41 | PROVIDERS: ATTEND General Practice | DX: Z08 Encounter for follow-up examination after completed treatment for malignant neoplasm (principal); Z85.818 Personal history of malignant neoplasm of other sites of lip, oral cavity, and pharynx; Z79.899 Other long term (current) drug therapy; Z92.21 Personal history of antineoplastic chemotherapy; Z92.3 Personal history of irradiation; Z88.0 Allergy status to penicillin; Z88.8 Allergy status to other drugs, medicaments and biological substances | CPT/HCPCS: 31575; G0463 ==

== ENCOUNTER → 2021-10-27 | Outpatient (REF) | payer BC | LOC: M LAB REF 11:11 | PROVIDERS: ATTEND Internal Medicine | DX: M10.9 Gout, unspecified (principal) ==

== ENCOUNTER → 2021-10-29 | Outpatient (REF) | payer BC | LOC: M LAB REF 21:52 | PROVIDERS: ATTEND Physician Assistant | DX: B34.9 Viral infection, unspecified (principal) ==

== ENCOUNTER → 2021-11-11 | Outpatient (CLI) | payer BC | LOC: M WUC 14:20 | PROVIDERS: ATTEND Internal Medicine | DX: R05.9 Cough, unspecified (principal); M54.2 Cervicalgia; M47.812 Spondylosis without myelopathy or radiculopathy, cervical region ==

== ENCOUNTER → 2021-12-11 | Outpatient (CLI) | payer BC ==
[~2021-12-11] MED LIST changes: +ALPR0.5T6 PO
== END ==
LOC: M ONCR 13:58
PROVIDERS: ATTEND General Practice
DX: C09.9 Malignant neoplasm of tonsil, unspecified (principal); Z79.899 Other long term (current) drug therapy; Z88.0 Allergy status to penicillin; Z88.8 Allergy status to other drugs, medicaments and biological substances; Z92.21 Personal history of antineoplastic chemotherapy; Z92.3 Personal history of irradiation
CPT/HCPCS: 31575; G0463

== ENCOUNTER → 2022-03-16 | Outpatient (CLI) | payer BC ==
[~2022-03-16] MED LIST changes: +MIRT1TAB15 PO; +SYNT25TA PO
[2022-03-16 15:35] LABS: BASO # 0.1 10^3/uL (0.0-0.2); BASO % 0.9 % (0.0-1.0); EOS # 0.2 10^3/uL (0.0-0.5); EOS % 3.8 % (0.0-3.0); HEMATOCRIT 40.5 % (42.0-52.0); HEMOGLOBIN 13.9 g/dl (13.5-17.5); LYMPH # 1.6 10^3/uL (1.5-5.0); MEAN CORPUSCULAR HEMOGLOBIN 30.4 pg (27.0-33.0); MEAN CORPUSCULAR HGB CONC 34.3 g/dl (32.0-36.5); MEAN CORPUSCULAR VOLUME 88.6 fl (80.0-96.0); MONO # 0.8 10^3/uL (0.0-0.8); MONO % 13.1 % (2.0-8.0); NEUTROPHILS # 3.1 10^3/uL (1.5-8.5); NEUTROPHILS % 54.7 % (36.0-66.0); PLATELET COUNT, AUTOMATED 166 10^3/uL (150-450); RED BLOOD COUNT 4.57 10^6/uL (4.30-6.10); WHITE BLOOD COUNT 5.7 10^3/uL (4.0-10.0)
[2022-03-16 15:49] LABS: FREE T4 0.94 NG/DL (0.89-1.76); THYROID STIMULATING HORMONE 5.858 uIU/ML (0.55-4.78)
[2022-03-16 16:25] LABS: ALKALINE PHOSPHATASE 64 U/L (46-116); ALT/SGPT 25 U/L (7.0-40); AST/SGOT 27 U/L (<34); BILIRUBIN,TOTAL 1.1 MG/DL (0.3-1.2); BLOOD UREA NITROGEN 21 MG/DL (9-23); CALCIUM LEVEL 9.5 MG/DL (8.3-10.6); CARBON DIOXIDE LEVEL 27 MMOL/L (20-31); CHLORIDE LEVEL 103 MMOL/L (98-107); CREATININE FOR GFR 0.93 MG/DL (0.70-1.30); GLOMERULAR FILTRATION RATE > 60.0 (>49); GLUCOSE, FASTING 106 MG/DL (74-106); POTASSIUM SERUM 4.5 MMOL/L (3.5-5.1); SODIUM LEVEL 138 MMOL/L (136-145); TOTAL PROTEIN 6.7 G/DL (5.7-8.2)
== END ==
LOC: M ONCR 13:46
PROVIDERS: ATTEND General Practice
DX: C09.0 Malignant neoplasm of tonsillar fossa (principal); Z79.899 Other long term (current) drug therapy; Z88.0 Allergy status to penicillin; Z88.8 Allergy status to other drugs, medicaments and biological substances; Z92.21 Personal history of antineoplastic chemotherapy; Z92.3 Personal history of irradiation
CPT/HCPCS: 31575; 36415; 80053; 84439; 84443; 85025; G0463

== ENCOUNTER → 2022-05-12 | Outpatient (CLI) | payer BC ==
[2022-05-12 14:04] LABS: FREE T4 1.13 NG/DL (0.89-1.76); THYROID STIMULATING HORMONE 3.201 uIU/ML (0.55-4.78)
== END ==
LOC: M ONCR 13:04
PROVIDERS: ATTEND General Practice
DX: C09.0 Malignant neoplasm of tonsillar fossa (principal)

== ENCOUNTER 2022-08-04 11:48 | Emergency (ER) | payer BC ==
[~2022-08-04] VITALS: Ht 167.6 cm; Wt 67.2 kg
[~2022-08-04 11:48] MED LIST changes: -K-TA10TA PO; +LORA1TAB23 PO; -LORA1TAB4 PO; +POTA-164 PO
[2022-08-04] MEDS ORDERED: LEVO25TA5 (11:59)
[2022-08-04] MEDS ORDERED: DOXY100T27 (11:59)
[2022-08-04] MEDS ORDERED: MIRT-10 (11:59)
[2022-08-04 14:49] LABS: BASO % 0.5 % (0.0-1.0); EOS # 0.1 10^3/uL (0.0-0.5); EOS % 0.8 % (0.0-3.0); HEMATOCRIT 41.3 % (42.0-52.0); HEMOGLOBIN 14.6 g/dl (13.5-17.5); LYMPH # 1.2 10^3/uL (1.5-5.0); LYMPH % 18.4 % (24.0-44.0); MEAN CORPUSCULAR HEMOGLOBIN 30.6 pg (27.0-33.0); MEAN CORPUSCULAR HGB CONC 35.4 g/dl (32.0-36.5); MEAN CORPUSCULAR VOLUME 86.6 fl (80.0-96.0); MONO # 0.6 10^3/uL (0.0-0.8); MONO % 9.8 % (2.0-8.0); NEUTROPHILS # 4.5 10^3/uL (1.5-8.5); NEUTROPHILS % 70.2 % (36.0-66.0); PLATELET COUNT, AUTOMATED 164 10^3/uL (150-450); RED BLOOD COUNT 4.77 10^6/uL (4.30-6.10); WHITE BLOOD COUNT 6.4 10^3/uL (4.0-10.0)
[2022-08-04 15:11] LABS: ERYTHROCYTE SEDIMENTATION RATE 2 mm/hr (0-20)
[2022-08-04 15:15] LABS: C REACTIVE PROTEIN QUANTITATIV < 0.40 MG/DL (<1.0)
[2022-08-04 15:16] LABS: BLOOD UREA NITROGEN 15 MG/DL (9-23); CARBON DIOXIDE LEVEL 28 MMOL/L (20-31); CHLORIDE LEVEL 100 MMOL/L (98-107); CREATININE FOR GFR 0.89 MG/DL (0.70-1.30); GLOMERULAR FILTRATION RATE > 60.0 (>49); GLUCOSE, FASTING 107 MG/DL (74-106); POTASSIUM SERUM 3.9 MMOL/L (3.5-5.1); SODIUM LEVEL 133 MMOL/L (136-145)
[2022-08-04 17:42] VITALS: BP 158/87; TEMP 97.6; O2SAT 99
[2022-08-04] MEDS ORDERED: IMIT50TA PO (18:24)
== END 2022-08-04 18:46 | disposition home or self-care (01) ==
LOC: M ED 11:48
DX: G43.B0 Ophthalmoplegic migraine, not intractable (principal); Z85.21 Personal history of malignant neoplasm of larynx; Z88.0 Allergy status to penicillin; Z88.8 Allergy status to other drugs, medicaments and biological substances

== ENCOUNTER → 2022-09-21 | Outpatient (CLI) | payer BC ==
[~2022-09-21] MED LIST changes: +DOXY100T27; +IMIT50TA PO; +LEVO25TA5; +MIRT-10
== END ==
LOC: M ONCR 14:20
PROVIDERS: ATTEND General Practice
DX: C09.9 Malignant neoplasm of tonsil, unspecified (principal); Z79.899 Other long term (current) drug therapy; Z88.0 Allergy status to penicillin; Z88.8 Allergy status to other drugs, medicaments and biological substances; Z92.21 Personal history of antineoplastic chemotherapy; Z92.3 Personal history of irradiation
CPT/HCPCS: 31575; G0463

== ENCOUNTER → 2022-10-01 | Outpatient (CLI) | payer BC ==
[~2022-10-01] MED LIST changes: +LEVO25TA5 PO
== END ==
LOC: M RAD 12:11
PROVIDERS: ATTEND Psychiatry & Neurology Neurology
DX: G43.109 Migraine with aura, not intractable, without status migrainosus (principal); H53.8 Other visual disturbances

== ENCOUNTER → 2022-12-01 | Outpatient (CLI) | payer BC ==
[~2022-12-01] MED LIST changes: +DOXY100T27 PO
== END ==
LOC: M RAD 09:36
PROVIDERS: ATTEND General Practice
DX: C09.0 Malignant neoplasm of tonsillar fossa (principal)

== ENCOUNTER → 2023-03-17 | Outpatient (CLI) | payer BC | LOC: M WUC 13:07 | PROVIDERS: ATTEND Internal Medicine | DX: M51.36 Other intervertebral disc degeneration, lumbar region (principal) ==

== ENCOUNTER → 2023-03-24 | Outpatient (CLI) | payer BC | LOC: M ONCR 14:16 | PROVIDERS: ATTEND General Practice | DX: Z08 Encounter for follow-up examination after completed treatment for malignant neoplasm (principal); Z85.818 Personal history of malignant neoplasm of other sites of lip, oral cavity, and pharynx; Z71.2 Person consulting for explanation of examination or test findings; Z79.890 Hormone replacement therapy; Z79.899 Other long term (current) drug therapy; Z88.0 Allergy status to penicillin; Z88.1 Allergy status to other antibiotic agents; Z88.8 Allergy status to other drugs, medicaments and biological substances; Z92.21 Personal history of antineoplastic chemotherapy; Z92.3 Personal history of irradiation | CPT/HCPCS: 31575; G0463 ==

== ENCOUNTER → 2023-03-31 | Outpatient (REF) | payer BC | LOC: M LAB REF 18:44 | PROVIDERS: ATTEND Internal Medicine | DX: Z11.59 Encounter for screening for other viral diseases (principal); M10.9 Gout, unspecified ==

== ENCOUNTER → 2023-06-24 | Outpatient (REF) | payer MEDICARE ==
[2023-06-24 18:07] LABS: FOLATE > 24.0 NG/ML (>5.4); VITAMIN B12 LEVEL 1150 PG/ML (211-911)
== END ==
LOC: M LAB REF 16:55
PROVIDERS: ATTEND Internal Medicine
DX: R20.2 Paresthesia of skin (principal)

== ENCOUNTER → 2023-06-30 | Outpatient (CLI) | payer MEDICARE | LOC: M ONCR 15:15 | PROVIDERS: ATTEND General Practice | DX: L59.8 Other specified disorders of the skin and subcutaneous tissue related to radiation (principal); F45.8 Other somatoform disorders; M62.838 Other muscle spasm ==

== ENCOUNTER → 2023-07-14 | Outpatient (CLI) | payer MEDICARE ==
[2023-07-14 19:02] LABS: RHEUMATOID FACTOR QUANT 5.6 IU/ML (<14)
[2023-07-14 19:05] LABS: TOTAL 25(OH) VITAMIN D 69.3 NG/ML (20.0-100.0)
== END ==
LOC: M PLALAB 14:34
PROVIDERS: ATTEND Psychiatry & Neurology Neurology
DX: G62.9 Polyneuropathy, unspecified (principal); Z79.899 Other long term (current) drug therapy

== ENCOUNTER → 2023-08-10 | Outpatient (REF) | payer MEDICARE | LOC: M LAB REF 10:47 | PROVIDERS: ATTEND Physician Assistant Medical | DX: R19.7 Diarrhea, unspecified (principal); R10.9 Unspecified abdominal pain ==

== ENCOUNTER → 2023-09-23 | Outpatient (CLI) | payer BC, MEDICARE ==
[~2023-09-23] MED LIST changes: +CETACAINE SPRAY 5GM MT ONE; +COQ150CH PO; +MIRT1TAB PO; +SUPECAP7 PO; +VITA100C8 PO; +VITATAB73 PO
== END ==
LOC: M ONCR 14:10
PROVIDERS: ATTEND General Practice
DX: Z08 Encounter for follow-up examination after completed treatment for malignant neoplasm (principal); Z85.818 Personal history of malignant neoplasm of other sites of lip, oral cavity, and pharynx; Z88.0 Allergy status to penicillin; Z88.1 Allergy status to other antibiotic agents; Z79.890 Hormone replacement therapy; Z79.899 Other long term (current) drug therapy; Z92.21 Personal history of antineoplastic chemotherapy; Z92.3 Personal history of irradiation
CPT/HCPCS: 31575; G0463

== ENCOUNTER 2023-10-03 09:22 | Day surgery (SDC) | payer MEDICARE ==
[~2023-10-03] VITALS: Ht 167.6 cm; Wt 64.4 kg
[~2023-10-03 09:22] MED LIST changes: -CETACAINE SPRAY 5GM MT ONE
[2023-10-03] MEDS: NS 1,000 ML IV ONE (09:40)
[2023-10-03] MEDS ORDERED: LIDOCAINE 2% 100MG/5ML SDV (FOR ANES.) As Ordered ONE (10:05)
[2023-10-03] MEDS ORDERED: propofoL 200 MG/20 ML VIAL As Ordered ONE (10:05)
[2023-10-03 11:10] VITALS: BP 139/80; O2SAT 98
== END 2023-10-03 11:10 | disposition home or self-care (01) ==
LOC: M OPP 09:22
PROVIDERS: ATTEND Surgery
DX: K52.9 Noninfective gastroenteritis and colitis, unspecified (principal); K44.9 Diaphragmatic hernia without obstruction or gangrene; K31.89 Other diseases of stomach and duodenum; K30 Functional dyspepsia; Z79.1 Long term (current) use of non-steroidal anti-inflammatories (NSAID); Z79.631 Long term (current) use of antimetabolite agent; Z79.899 Other long term (current) drug therapy

== ENCOUNTER → 2023-10-19 | Outpatient (CLI) | payer MEDICARE ==
[2023-10-19 17:49] LABS: FOLATE > 24.0 NG/ML (>5.4)
[2023-10-19 17:51] LABS: VITAMIN B12 LEVEL 919 PG/ML (211-911)
[2023-10-25 12:17] LABS: VITAMIN E(ALPHA TOCOPHEROL) 12.6 mg/L (5.7-19.9); VITAMIN E(GAMMA TOCOPHEROL) < 1.0 mg/L (<=4.3)
[2023-10-25 12:47] LABS: VITAMIN B1 LEVEL WHOLE BLOOD 129 nmol/L (78-185)
[2023-10-25 18:18] LABS: VITAMIN B6,PYRIDOXAL PHOSPHATE 28.8 ng/mL (2.1-21.7)
== END ==
LOC: M WUC 11:38
PROVIDERS: ATTEND Psychiatry & Neurology Neurology
DX: R20.2 Paresthesia of skin (principal); D51.9 Vitamin B12 deficiency anemia, unspecified; E51.9 Thiamine deficiency, unspecified; E53.1 Pyridoxine deficiency

== ENCOUNTER → 2023-10-28 | Outpatient (CLI) | payer MEDICARE | LOC: M ONCR 14:59 | PROVIDERS: ATTEND General Practice | DX: R59.0 Localized enlarged lymph nodes (principal) ==

== ENCOUNTER → 2023-10-28 | Outpatient (REF) | payer MEDICARE | LOC: M LAB REF 12:34 | PROVIDERS: ATTEND Internal Medicine | DX: R53.83 Other fatigue (principal) ==

== ENCOUNTER → 2023-11-12 | Outpatient (CLI) | payer MEDICARE | LOC: M RAD 08:20 | PROVIDERS: ATTEND Psychiatry & Neurology Neurology | DX: G43.109 Migraine with aura, not intractable, without status migrainosus (principal); M51.26 Other intervertebral disc displacement, lumbar region; J01.00 Acute maxillary sinusitis, unspecified; H53.8 Other visual disturbances; R20.2 Paresthesia of skin; M54.2 Cervicalgia ==

== ENCOUNTER → 2023-11-15 | Outpatient (CLI) | payer MEDICARE | LOC: M RAD 12:44 | PROVIDERS: ATTEND General Practice | DX: C09.0 Malignant neoplasm of tonsillar fossa (principal) ==

== ENCOUNTER → 2023-11-29 | Outpatient (CLI) | payer MEDICARE | LOC: M ONCR 15:13 | PROVIDERS: ATTEND General Practice | DX: C09.0 Malignant neoplasm of tonsillar fossa (principal); F41.9 Anxiety disorder, unspecified; R20.2 Paresthesia of skin; M79.671 Pain in right foot; M79.672 Pain in left foot; Z92.21 Personal history of antineoplastic chemotherapy ==

== ENCOUNTER → 2024-01-09 | Outpatient (CLI) | payer MEDICARE ==
[~2024-01-09] MED LIST changes: -CYCL5TAB PO; +CYCL5TAB4 PO
== END ==
LOC: M WUC 13:27
PROVIDERS: ATTEND Internal Medicine Cardiovascular Disease
DX: E85.4 Organ-limited amyloidosis (principal); N08 Glomerular disorders in diseases classified elsewhere

== ENCOUNTER → 2024-01-27 | Outpatient (CLI) | payer MEDICARE | LOC: M ONCR 11:00 | PROVIDERS: ATTEND General Practice | DX: C09.0 Malignant neoplasm of tonsillar fossa (principal); F41.8 Other specified anxiety disorders; G60.9 Hereditary and idiopathic neuropathy, unspecified; Z79.890 Hormone replacement therapy; Z92.21 Personal history of antineoplastic chemotherapy; Z92.3 Personal history of irradiation; Z88.0 Allergy status to penicillin; Z88.1 Allergy status to other antibiotic agents | CPT/HCPCS: 31575; G0463 ==

== ENCOUNTER → 2024-01-30 | Outpatient (CLI) | payer MEDICARE ==
[2024-01-30 11:46] LABS: BASO # 0.1 10^3/uL (0.0-0.2); BASO % 0.7 % (0.0-1.0); EOS # 0.1 10^3/uL (0.0-0.5); EOS % 0.9 % (0.0-3.0); HEMATOCRIT 42.4 % (42.0-52.0); HEMOGLOBIN 14.7 g/dl (13.5-17.5); LYMPH # 1.3 10^3/uL (1.5-5.0); LYMPH % 18.9 % (24.0-44.0); MEAN CORPUSCULAR HEMOGLOBIN 30.5 pg (27.0-33.0); MEAN CORPUSCULAR HGB CONC 34.7 g/dl (32.0-36.5); MONO # 0.9 10^3/uL (0.0-0.8); MONO % 12.8 % (2.0-8.0); NEUTROPHILS # 4.6 10^3/uL (1.5-8.5); NEUTROPHILS % 66.3 % (36.0-66.0); PLATELET COUNT, AUTOMATED 453 10^3/uL (150-450); RED BLOOD COUNT 4.82 10^6/uL (4.30-6.10); WHITE BLOOD COUNT 6.9 10^3/uL (4.0-10.0)
[2024-01-30 11:55] LABS: ERYTHROCYTE SEDIMENTATION RATE < 1 mm/hr (0-20)
[2024-01-30 12:14] LABS: C REACTIVE PROTEIN QUANTITATIV < 0.50 MG/DL (<1.0)
[2024-01-30 12:15] LABS: ALBUMIN 3.9 G/DL (3.2-5.2); ALKALINE PHOSPHATASE 74 U/L (40-129); ALT/SGPT 26 U/L (7.0-40); AST/SGOT 20 U/L (<34); BILIRUBIN,TOTAL 1.3 MG/DL (0.3-1.2); BLOOD UREA NITROGEN 20 MG/DL (9-23); CALCIUM LEVEL 9.9 MG/DL (8.3-10.6); CARBON DIOXIDE LEVEL 30 MMOL/L (20-31); CHLORIDE LEVEL 97 MMOL/L (98-107); CREATININE FOR GFR 0.86 MG/DL (0.70-1.30); FERRITIN 156.7 NG/ML (10.5-307.3); FREE T4 1.45 NG/DL (0.89-1.76); GLOMERULAR FILTRATION RATE > 60.0 (>49); GLUCOSE, FASTING 101 MG/DL (74-106); POTASSIUM SERUM 4.6 MMOL/L (3.5-5.1); SODIUM LEVEL 134 MMOL/L (136-145); TOTAL PROTEIN 6.9 G/DL (5.7-8.2)
[2024-01-30 12:16] LABS: TOTAL 25(OH) VITAMIN D 47.1 NG/ML (20.0-100.0)
[2024-01-30 12:17] LABS: VITAMIN B12 LEVEL 922 PG/ML (211-911)
[2024-01-30 13:24] LABS: FOLATE 19.39 NG/ML (>5.4)
[2024-01-30 17:10] LABS: RHEUMATOID FACTOR QUANT < 3.5 IU/ML (<14)
[2024-01-31 15:52] LABS: SSA SJOGRENS A <1.0 NEG AI (<1.0 NEG); SSB SJOGRENS B <1.0 NEG AI (<1.0 NEG)
== END ==
LOC: M LAB 10:20
PROVIDERS: ATTEND General Practice
DX: C09.0 Malignant neoplasm of tonsillar fossa (principal); E07.9 Disorder of thyroid, unspecified

== ENCOUNTER → 2024-02-14 | Outpatient (CLI) | payer MEDICARE | LOC: M PLAIMG 15:19 | PROVIDERS: ATTEND Physician Assistant Medical | DX: M54.9 Dorsalgia, unspecified (principal); M47.814 Spondylosis without myelopathy or radiculopathy, thoracic region ==

== ENCOUNTER → 2024-02-16 | Outpatient (REF) | payer MEDICARE | LOC: M LAB REF 16:21 | PROVIDERS: ATTEND Physician Assistant Medical | DX: R10.12 Left upper quadrant pain (principal) ==

== ENCOUNTER → 2024-02-22 | Outpatient (CLI) | payer MEDICARE ==
[~2024-02-22] MED LIST changes: +ISOVUE-370 76% 100ML VIAL As Ordered ONE
== END ==
LOC: M RAD 15:05
PROVIDERS: ATTEND Physician Assistant Medical
DX: R10.12 Left upper quadrant pain (principal)
CPT/HCPCS: 74177; Q9967

== ENCOUNTER → 2024-02-29 | Outpatient (REF) | payer MEDICARE ==
[~2024-02-29] MED LIST changes: -ISOVUE-370 76% 100ML VIAL As Ordered ONE
== END ==
LOC: M LAB REF 16:14
PROVIDERS: ATTEND Physician Assistant Medical
DX: G60.2 Neuropathy in association with hereditary ataxia (principal); R53.83 Other fatigue

== ENCOUNTER → 2024-04-27 | Outpatient (REF) | payer MEDICARE | LOC: M LAB REF 15:14 | PROVIDERS: ATTEND Internal Medicine | DX: Z11.4 Encounter for screening for human immunodeficiency virus [HIV] (principal) ==

== ENCOUNTER 2024-08-19 21:49 | Emergency (ER) | payer MEDICARE ==
[~2024-08-19] VITALS: Ht 167.6 cm; Wt 62.7 kg
[2024-08-19 22:52] LABS: BASO # 0.1 10^3/uL (0.0-0.2); BASO % 0.8 % (0.0-1.0); EOS # 0.1 10^3/uL (0.0-0.5); EOS % 1.3 % (0.0-3.0); LYMPH # 2.3 10^3/uL (1.5-5.0); LYMPH % 35.8 % (24.0-44.0); MONO # 0.7 10^3/uL (0.0-0.8); MONO % 11.3 % (2.0-8.0); NEUTROPHILS # 3.2 10^3/uL (1.5-8.5); NEUTROPHILS % 49.9 % (36.0-66.0); PLATELET COUNT, AUTOMATED 231 10^3/uL (150-450)
[2024-08-19 23:20] LABS: CK-MB VALUE MASS 3.3 NG/ML (<3.6)
[2024-08-19 23:22] LABS: CALCIUM LEVEL 9.6 MG/DL (8.3-10.6); CARBON DIOXIDE LEVEL 26.0 MMOL/L (20-31); CHLORIDE LEVEL 94.0 MMOL/L (98-107); CREATININE FOR GFR 0.97 MG/DL (0.70-1.30); GLOMERULAR FILTRATION RATE 86.1 (>49); POTASSIUM SERUM 3.9 MMOL/L (3.5-5.1); SODIUM LEVEL 133.0 MMOL/L (136-145)
[2024-08-19 23:25] LABS: CPK CREATINE PHOSPHOKINASE 142.0 U/L (46-171); MB/CK RELATIVE INDEX 2.32 (< OR =4)
[2024-08-20 00:31] LABS: CK-MB VALUE MASS 3.2 NG/ML (<3.6)
[2024-08-20 00:35] LABS: CPK CREATINE PHOSPHOKINASE 132.0 U/L (46-171); MB/CK RELATIVE INDEX 2.42 (< OR =4)
[2024-08-20 02:30] VITALS: BP 118/74; TEMP 97.9; O2SAT 97
== END 2024-08-20 02:54 | disposition home or self-care (01) ==
LOC: M ED 21:49
DX: R03.0 Elevated blood-pressure reading, without diagnosis of hypertension (principal); F41.8 Other specified anxiety disorders; A69.20 Lyme disease, unspecified; B60.00 Babesiosis, unspecified; A44.9 Bartonellosis, unspecified; E55.0 Rickets, active; C32.9 Malignant neoplasm of larynx, unspecified; Z79.899 Other long term (current) drug therapy; Z88.0 Allergy status to penicillin; Z88.8 Allergy status to other drugs, medicaments and biological substances
CPT/HCPCS: 36415; 71045; 80048; 82550; 82553; 84484; 85025; 93005; 93041; 94760; 96374; 99285; J2060

== ENCOUNTER → 2025-01-04 | Outpatient (CLI) | payer MEDICARE ==
[~2025-01-04] MED LIST changes: +ALPR-515 PO; -ALPR0.5T6 PO; -IBUP-1022 PO; +IBUP600T42 PO; +PROC5TAB81 PO; +PROHANCE 279.3MG/ML 15ML VIAL As Ordered ONE; +SYNT50TA PO
== END ==
LOC: M RAD 15:04
PROVIDERS: ATTEND General Practice
DX: C09.0 Malignant neoplasm of tonsillar fossa (principal); M51.26 Other intervertebral disc displacement, lumbar region
CPT/HCPCS: 70543; 73223; A9579

== ENCOUNTER → 2025-01-22 | Outpatient (CLI) | payer MEDICARE ==
[~2025-01-22] MED LIST changes: -PROHANCE 279.3MG/ML 15ML VIAL As Ordered ONE
== END ==
LOC: M PLARAD 11:58
PROVIDERS: ATTEND General Practice
DX: C09.0 Malignant neoplasm of tonsillar fossa (principal)
CPT/HCPCS: 78815; A9552

== ENCOUNTER → 2025-01-25 | Outpatient (CLI) | payer MEDICARE | LOC: M ONCR 10:32 | PROVIDERS: ATTEND General Practice | DX: Z08 Encounter for follow-up examination after completed treatment for malignant neoplasm (principal); Z85.818 Personal history of malignant neoplasm of other sites of lip, oral cavity, and pharynx; A69.20 Lyme disease, unspecified; Z92.21 Personal history of antineoplastic chemotherapy; Z92.3 Personal history of irradiation; Z88.0 Allergy status to penicillin; Z88.1 Allergy status to other antibiotic agents; Z79.899 Other long term (current) drug therapy | CPT/HCPCS: 31575; G0463 ==